=== PATIENT | female | born 1995 | race Caucasian/White ===

== ENCOUNTER 2019-09-08 10:01 | Emergency (ER) | payer OTHER, SELFPAY ==
[2019-09-08 10:04] VITALS: BP 140/88; PULSE 81; RESP 20; O2SAT 100; BMI 29.0
--- NOTE | 2019-09-08 10:57 | PC.NURSE ---
Patient complains of back pain. She was lifting on and felt a sharp pain in her back. Last night around 2400 she had intense shooting pain and could not move. She has been taking ibuprophen 600mg/ daily. She is currently at a 4/10 pain.
--- NOTE | 2019-09-08 11:14 | ED.BACK ---
HPI - Back Pain/Injury <Miranda Mcadams PA-C - Last Filed: 09/08/19 12:41> General Chief Complaint: Back Pain/Injury Stated Complaint: back pain x4 days Time Seen by Provider: 09/08/19 10:59 Source: patient Mode of arrival: Ambulatory Limitations: no limitations History of Present Illness HPI Narrative: Is a healthy 24-year-old woman who presents with her to the emergency department complaining of back pain that began on when she was working out doing squats, and has continued for the past 4 days worsening last night to the point where she could not move for about 4 hours because it was so painful. She says that on when she was working out she felt a little uncomfortable after doing some squats when she leaned forward and then by the end of her work out she was in pretty significant low back pain she has been icing it on and off since the injury occurred, and has not been improving however last night as she was crawling into bed she felt like something ?snapped and the pain became excruciating and I felt like I could move because of the pain for about 4 hours? she was able to get to sleep ultimately and did have some improvement of her pain, this morning she says her pain is about a 3/10 and she says that last night was about a 7/10. She denies numbness, tingling, pain radiating down her legs or into her buttocks, loss of bowel or bladder function, weakness in her lower extremities, or any other symptoms. She has been in her normal state of health and this is an isolated complaint. She does note that she and her are trying to get and it is possible that she could be very early, she says her last period was about 4 weeks ago. Complaint: back pain and back injury Onset (ago): day(s) (4) Duration: constant Similar Symptoms Previously: No Location: lumbar spine (and paraspinal muscles) Severity: moderate Quality: aching and spasming Radiation: none Severity scale (1-10): 3 (7 with spasm) Relieving factors: immobilization and other (better standing, ice) Exacerbating factors: movement, lifting and other (leaning forward) Context: while lifting (doping squats) Associated symptoms: denies other symptoms Treatments prior to arrival: cold therapy Related Data Previous Rx's Medication Instructions Recorded lidocaine 1 patch TOP DAILY PRN #6 each 09/08/19 tizanidine 2 mg PO Q6-8H PRN #18 cap 09/08/19 Review of Systems <Miranda Mcadams PA-C - Last Filed: 09/08/19 12:41> Review of Systems Narrative: GENERAL: Denies chills, fatigue, malaise, fever, sweats. HEENT: Denies sinus pain, ear pain, sore throat, difficulty swallowing, dizziness. RESPIRATORY: Denies dyspnea, cough, wheezing, hemoptysis, sputum. CARDIOVASCULAR: Denies chest pain, palpitations, orthopnea, edema, GASTROINTESTINAL: Denies nausea, vomiting, abdominal pain, diarrhea, constipation, melena. : Denies dysuria, frequency, incontinence, hematuria, urinary retention. MUSCULOSKELETAL: Positive for low back pain in the middle and the muscles on the size of her lumbar spine, denies weakness, joint pain, or bony pain SKIN: Denies rash, skin lesions, or other NEUROLOGIC: Denies weakness, headache, numbness, change in speech, confusion, seizures, incoordination. PSYCHIATRIC: No concerning psychosocial issues. 12 point review of systems is negative except for those stated above Patient History <Miranda Mcadams PA-C - Last Filed: 09/08/19 12:41> Social History Smoking Status: Never smoker Smoking Status: Never smoker alcohol intake frequency: a few times a month Substance Use Type: marijuana Exam <Miranda Mcadams PA-C - Last Filed: 09/08/19 12:41> Narrative Exam Narrative: GENERAL: 24 year old patient appears stated age. Well-nourished, well-developed patient, in mild distress. HEAD: Atraumatic. Normocephalic. EYES: Pupils equal round and reactive. Extraocular motions intact. No scleral icterus. No injection or drainage. ENT: Nose without bleeding, purulent drainage. Throat without erythema, tonsillar hypertrophy or exudate. Airway patent. NECK: Trachea midline. Non tender CARDIOVASCULAR: Regular rate and rhythm without murmurs, gallops, or rubs. Distal pulses are strong and equal bilaterally. RESPIRATORY: Clear to auscultation. Breath sounds equal bilaterally. No wheezes, rales, or rhonchi. GASTROINTESTINAL: Abdomen soft, non-tender, nondistended. EXTREMITIES: No edema or joint tenderness. She has 5/5 strength bilaterally in the lower extremities, she has normal range of motion of the lower extremities, with some mild pain elicited in her low back with resisted flexion and extension at the knee BACK: She is tender over the lumbar spine L2- L4 without deformity or crepitance. She has tenderness with palpation of the paraspinal muscles bilaterally of the lumbar spine. No flank tenderness. NEURO: AOx3. Sensation and strength are intact, gait is normal. SKIN: No rash or erythema of visible areas, pink, warm and dry Initial Vital Signs Initial Vital Signs: Vital Signs Pulse Rate 81 09/08/19 10:04 Respiratory Rate 20 09/08/19 10:04 Blood Pressure 140/88 09/08/19 10:04 Pulse Oximetry 100 09/08/19 10:04 <Alberto Wheatley MD - Last Filed: 09/12/19 21:27> Initial Vital Signs Initial Vital Signs: Vital Signs Pulse Rate 81 09/08/19 10:04 Respiratory Rate 20 09/08/19 10:04 Blood Pressure 140/88 09/08/19 10:04 Pulse Oximetry 100 09/08/19 10:04 Course <Miranda Mcadams PA-C - Last Filed: 09/08/19 12:41> Orders Ordered: ED Orders 09/08/19 11:15 XR lumbar spine 2-3V Stat 09/08/19 11:38 Urinalysis Screen (Dip Only) Stat Vital Signs Vital signs: Vital Signs - 8 hr 09/08/19 10:04 Pulse Rate 81 Respiratory Rate 20 Blood Pressure 140/88 Pulse Oximetry 100 <Alberto Wheatley MD - Last Filed: 09/12/19 21:27> Orders Ordered: ED Orders 09/08/19 11:15 XR lumbar spine 2-3V Stat 09/08/19 11:38 Urinalysis Screen (Dip Only) Stat Vital Signs Vital signs: Vital Signs - 8 hr 09/08/19 10:04 Pulse Rate 81 Respiratory Rate 20 Blood Pressure 140/88 Pulse Oximetry 100 MDM - Back Pain/Injury <Miranda Mcadams PA-C - Last Filed: 09/08/19 12:41> Differential Diagnosis Differential diagnosis: Likely strain of lumbar region and other (acute back pain/injury) Medical Records Attestation: I reviewed the patient's medical records. Lab Data Labs: Point of Care Testing Test Results Negative Urine Dip Bedside Urine Glucose Negative Bedside Urine Bilirubin - Negative Bedside Urine Ketone - Negative Urine Specific [place] 1.015 Bedside Urine Occult Blood - Negative Bedside Urine pH 6.0 Bedside Urine Protein - Negative Bedside Urine Urobilinogen - Negative Bedside Urine Nitrite - Negative Bedside Urine Leukocytes - Negative Esterase Imaging Data lumbar xray: Attestation: I personally reviewed and interpreted this imaging study as follows: Radiologist's Impression: [address] [address] XRay Report Signed Patient: Anaid Perez DMR#: [id number] : 1995Acct:[id number] Age/Sex: 24 / FDate of Service: 09/08/19 Loc: ED Accession Number: [id number] Procedure: XR lumbar spine 2-3V Ordering Provider: Miranda Mcadams P.A-C PROCEDURE: XR LUMBAR SPINE 2-3V INDICATIONS: acute back pain TECHNIQUE: 3 views of the lumbar spine were acquired. COMPARISON: None. FINDINGS: Bones: 5 [id number] vertebrae are present. There is normal bony alignment. No vertebral body compression fractures. No suspicious bony lesions. Soft tissues: Overlying bowel gas pattern is normal. No suspicious soft tissue calcifications. IMPRESSION: No compression fracture or spondylolisthesis in the lumbar spine. Dictated by: Mac Pineda M.D. on 09/08/2019 at 12:21 Approved by: Mac Pineda M.D. on 09/08/2019 at 12:22 [facility] Narrative Medical decision making narrative: This is a previously healthy 24-year-old who presents with low back pain that has not improved after 4 days, sustained during a workout all doing squats of last. She had 1 a 4 hour episode of worse pain last night, denies any red flag symptoms and presents in 3/10 pain today ambulatory. Patient reports possibility of being , U preg is ordered, negative, urine dip is unremarkable, lumbar spine x-rays ordered. Strongly suspect she has a lumbar muscle strain, she has no radicular symptoms, or weakness. X-rays unremarkable. Patient provided with education regarding expected course of her recovery, as well as work note for 3 days, and prescription for tizanidine and lidocaine patches.. <Alberto Wheatley MD - Last Filed: 09/12/19 21:27> Lab Data Labs: Point of Care Testing Test Results Negative Urine Dip Bedside Urine Glucose Negative Bedside Urine Bilirubin - Negative Bedside Urine Ketone - Negative Urine Specific [place] 1.015 Bedside Urine Occult Blood - Negative Bedside Urine pH 6.0 Bedside Urine Protein - Negative Bedside Urine Urobilinogen - Negative Bedside Urine Nitrite - Negative Bedside Urine Leukocytes - Negative Esterase Discharge Plan Departure Patient Disposition: Home Clinical Impression: Strain of lumbar region Qualifiers: Encounter type: initial encounter Qualified Code(s): S39.012A - Strain of muscle, fascia and tendon of lower back, initial encounter Acute back pain Qualifiers: Back pain location: low back pain Back pain laterality: bilateral Sciatica presence: without sciatica Qualified Code(s): M54.5 - Low back pain Discharge Date/Time: 09/08/19 12:40 Instructions: DI for Low Back Pain, DI for Back Spasm, DI for Back Strain or Sprain Activity Restrictions/Additional Instructions: Thank you for allowing us to be part of her care in the emergency department today. There is no evidence of an emergent or life threatening illness at this time, but follow up with your doctor in 1-2 days is recommended nonetheless to continue to rule out serious underlying causes of your symptoms. Please call the office for an appointment. Please return to the Emergency Department for any worsening or persistent symptoms. Please take medications as directed. He can take up to 3 weeks for back strains to resolve, some people find alternating ice and heat is helpful but you can do either heat or ice or both whatever feels better to you, I recommend doing some gentle stretching, continue with walking and gentle exercise, however I would not do any weightlifting or heavy lifting for the next few weeks or until your pain has resolved. Have provided you with a prescription for lidocaine patches which he can wear for up to 12 hours at a time over the area of pain on your back. I have also provided you with a prescription for tizanidine which is a muscle relaxer which may help if you are having muscle spasms which I suspect happened last night with your acute pain worsening. I recommend you do not drive or operate equipment while you are taking muscle relaxer. You can continue to take Tylenol and ibuprofen alternating for your pain. I have also provided you with a work note for the next 3 days if you want to take this time off to rest. Prescriptions: New tizanidine 2 mg capsule 2 mg PO Q6-8H PRN (Reason: muscle spasticity) Qty: 18 RF: 0 lidocaine 4 % adhesive patch,medicated 1 patch TOP DAILY PRN (Reason: pain) Qty: 6 RF: 0 Stand Alone Forms: Work Release Note
[2019-09-08 12:39] VITALS: BP 108/71; PULSE 61; RESP 17; O2SAT 98
== END 2019-09-08 12:40 | disposition home or self-care (01) ==
PROVIDERS: Emergency Provider Student in an Organized Health Care Education/Training Program
DX: S39.012A Strain of muscle, fascia and tendon of lower back, initial encounter (principal)
CPT/HCPCS: 72100; 81003; 81025; 99283